=== PATIENT | male | born 1990 | race African-American/Black ===

== ENCOUNTER 2023-04-01 14:53 | Emergency (ER) | payer SELFPAY ==
[~2023-04-01] VITALS: Ht 180.3 cm; Wt 84.0 kg
[2023-04-01 14:54] VITALS: BP 170/88; TEMP 98.5; O2SAT 99
[2023-04-01 14:55] VITALS: PULSE 98
[2023-04-01] MEDS ORDERED: TETANUS, DIPHTHERIA, PERTUSSIS VAC/PF 0.5ML (>10YR OLD) IM ONE (15:15)
[2023-04-01] MEDS ORDERED: BACITRACIN ZINC OINT UDPKT TOP ONE (15:15)
[2023-04-01] MEDS ORDERED: LIDOCAINE HCL/PF 1% 10 MG/ML 5ML VIAL INFIL ONE (15:15)
[2023-04-01] MEDS ORDERED: ACET-2708 MT (17:10)
[2023-04-01] MEDS ORDERED: BO1 TP (17:10)
[2023-04-01] MEDS ORDERED: NAPR-1164 MT (17:10)
== END 2023-04-01 17:40 | disposition home or self-care (01) ==
LOC: ER 14:53
DX: S61.012A Laceration without foreign body of left thumb without damage to nail, initial encounter (principal); X58.XXXA Exposure to other specified factors, initial encounter; Y93.89 Activity, other specified; Y92.89 Other specified places as the place of occurrence of the external cause; Y99.8 Other external cause status
CPT/HCPCS: 99283; 90715; 12002; 90471; J3490